=== PATIENT | female | born 1960 ===

== ENCOUNTER → 2024-07-24 | Outpatient (CLI) | payer MEDICARE, OTHER ==
[~2024-07-24] VITALS: Ht 154.9 cm; Wt 61.0 kg
[~2024-07-24] MED LIST: ATOR10TA PO; FLUT1BLS3 IH; LEVO50 PO; TELM20 PO
[2024-07-24 13:41] VITALS: BP 130/64; PULSE 68; RESP 18; TEMP 98.5; O2SAT 97
== END | disposition home or self-care (01) ==
LOC: SRCNTR 13:28
PROVIDERS: ATTEND Internal Medicine Pulmonary Disease
DX: G47.33 Obstructive sleep apnea (adult) (pediatric) (principal); I10 Essential (primary) hypertension; E03.9 Hypothyroidism, unspecified; E78.5 Hyperlipidemia, unspecified; J47.9 Bronchiectasis, uncomplicated; I25.10 Atherosclerotic heart disease of native coronary artery without angina pectoris; Z79.899 Other long term (current) drug therapy; Z80.3 Family history of malignant neoplasm of breast; Z82.49 Family history of ischemic heart disease and other diseases of the circulatory system; Z85.3 Personal history of malignant neoplasm of breast
CPT/HCPCS: G0463; Z7500